=== PATIENT | female | born 1975 | race Caucasian/White ===

== ENCOUNTER 2018-05-25 14:36 | Emergency (ER) | payer OTHER ==
[~2018-05-25] VITALS: Ht 162.6 cm; Wt 79.5 kg
[2018-05-25 14:36] VITALS: BP 119/80
[~2018-05-25 14:36] MED LIST: /MOM400 PO; ACET50TA PO; ANUS2.5C2 EXT; DOCU10ELUD PO; IBUP100SUS PO; IBUP600T26 PO; PRENTAB74 PO
[2018-05-25] MEDS ORDERED: WELLTAB40 PO (14:47)
[2018-05-25] MEDS ORDERED: METF500T13 PO (14:47)
[2018-05-25] MEDS ORDERED: TRAZ-160 PO (14:47)
[2018-05-25] MEDS ORDERED: PRED10TA2 PO (16:40)
[2018-05-25] MEDS ORDERED: PEPC1TAB5 PO (16:40)
[2018-05-25] MEDS ORDERED: BENA25CA4 PO (16:40)
== END 2018-05-25 16:46 | disposition home or self-care (01) ==
LOC: M ED 14:36
DX: T78.40XA Allergy, unspecified, initial encounter (principal); Y92.9 Unspecified place or not applicable; Y93.9 Activity, unspecified; R21 Rash and other nonspecific skin eruption; L29.9 Pruritus, unspecified; E11.9 Type 2 diabetes mellitus without complications; F90.9 Attention-deficit hyperactivity disorder, unspecified type; F43.10 Post-traumatic stress disorder, unspecified; Z72.0 Tobacco use; Z79.899 Other long term (current) drug therapy

== ENCOUNTER → 2018-07-05 | Outpatient (REF) | payer OTHER ==
[~2018-07-05] MED LIST changes: -/MOM400 PO; -ACET50TA PO; +BENA25CA4 PO; -DOCU10ELUD PO; +DOCU5LIQ PO; +IBUP100S44 PO; -IBUP100SUS PO; +MAPA500T17 PO; +METF500T13 PO; +MILK10SU PO; +PEPC1TAB5 PO; +PRED10TA2 PO; +TRAZ-160 PO; +WELLTAB40 PO
[2018-07-05 14:03] LABS: ALBUMIN 3.8 GM/DL (3.2-5.2); ALT/SGPT 112 U/L (12-78); BILIRUBIN,TOTAL 0.2 MG/DL (0.2-1.0); BLOOD UREA NITROGEN 5 MG/DL (7-18); CALCIUM LEVEL 8.6 MG/DL (8.5-10.1); CARBON DIOXIDE LEVEL 27 MEQ/L (21-32); CHLORIDE LEVEL 110 MEQ/L (98-107); CHOLESTEROL LEVEL 174 MG/DL (<200); CHOLESTEROL RISK RATIO 5.117 (<5); CREATININE FOR GFR 0.72 MG/DL (0.55-1.30); FREE T4 1.13 NG/DL (0.76-1.46); GLOMERULAR FILTRATION RATE > 60.0 (>58); GLUCOSE, FASTING 73 MG/DL (70-100); HDL CHOLESTEROL 34 MG/DL (>40); LDL CHOLESTEROL 86 MG/DL (<100); NON-HDL-C 140 MG/DL; POTASSIUM SERUM 4.3 MEQ/L (3.5-5.1); SODIUM LEVEL 142 MEQ/L (136-145); THYROID STIMULATING HORMONE 0.772 uIU/ML (0.358-3.740); TOTAL 25(OH) VITAMIN D 39.6 NG/ML (30.0-100.0); TOTAL PROTEIN 7.1 GM/DL (6.4-8.2); TRIGLYCERIDES LEVEL 270 MG/DL (<150)
[2018-07-05 15:52] LABS: BASO # 0.1 10^3/uL (0.0-0.2); BASO % 1.1 % (0.0-1.0); EOS # 0.2 10^3/uL (0.0-0.50); EOS % 2.9 % (0.0-3.0); HEMATOCRIT 40.4 % (36.0-47.0); HEMOGLOBIN 12.8 g/dl (12.0-15.5); LYMPH # 2.3 10^3/uL (1.5-4.5); LYMPH % 40.6 % (24.0-44.0); MEAN CORPUSCULAR HGB CONC 31.7 g/dl (32.0-36.5); MEAN CORPUSCULAR VOLUME 91.6 fl (80.0-96.0); MONO # 0.8 10^3/uL (0.0-0.8); MONO % 14.7 % (0.0-5.0); NEUTROPHILS # 2.3 10^3/uL (1.8-7.7); NEUTROPHILS % 40.5 % (36.0-66.0); PLATELET COUNT, AUTOMATED 377 10^3/uL (150-450); RED BLOOD COUNT 4.41 10^6/uL (4.00-5.40); WHITE BLOOD COUNT 5.6 10^3/uL (4.0-10.0)
== END ==
LOC: M SFHCPLAZ 11:13
PROVIDERS: ATTEND Nurse Practitioner Family
DX: Z13.228 Encounter for screening for other metabolic disorders (principal); E55.9 Vitamin D deficiency, unspecified

== ENCOUNTER → 2018-08-03 | Outpatient (CLI) | payer OTHER ==
--- NOTE | 2018-08-04 02:56 | REP ---
Clinical: Elevated liver function tests. Technique: Real time piña scale ultrasound examination using curved array transducer. Findings: The liver is increased echogenicity with poor through transmission suggesting fatty infiltration. No focal hepatic lesion identified. No hepatomegaly. The pancreas is incompletely evaluated due to interposed bowel gas but visualized portions appear normal. The gallbladder is unremarkable and without gallstones, wall thickening or pericholecystic fluid. No biliary ductal dilatation is appreciated and the common bile duct measures 2.5 mm diameter. Right kidney without hydronephrosis and measures 11.4 x 5.7 x 4.6 cm with possible small nonobstructing intrarenal calculi and/or renovascular calcifications. No ascites. Impression: 1. Hepatic steatosis. 2. Cannot exclude nonobstructing intrarenal calculi versus renovascular calcifications. Correlation with urinalysis may be warranted. Electronically Signed by Brandyn Fitzgerald MD 08/04/2018 02:47 A
== END ==
LOC: M RAD 07:55
PROVIDERS: ATTEND Nurse Practitioner Family
DX: K76.0 Fatty (change of) liver, not elsewhere classified (principal)

== ENCOUNTER → 2020-12-18 | Outpatient (REF) | payer OTHER ==
[~2020-12-18] MED LIST changes: -TRAZ-160 PO; +TRAZ-252 PO
== END ==
LOC: M LAB REF 16:28
PROVIDERS: ATTEND Physician Assistant
DX: R05 Cough (principal); R53.83 Other fatigue